=== PATIENT | male | born 1960 ===

== ENCOUNTER 2017-08-01 10:10 | Emergency (ER) | payer OTHER ==
[~2017-08-01] VITALS: Ht 152.4 cm; Wt 54.4 kg
[~2017-08-01 10:10] MED LIST: ANAPROX DS550 MG PO; CIPRO250 MG PO; CIPRO500 MG PO; FLOMAX0.4 MG PO; MOTRIN800 MG PO; PYRIDIUM200 M1 PO; VICODIN 5/500 505 MG PO
[2017-08-01] MEDS ORDERED: IBUPROFEN600 MG PO ×2 (13:00→15:51)
== END 2017-08-01 16:05 | disposition home or self-care (01) ==
LOC: ED 10:10
DX: S80.12XA Contusion of left lower leg, initial encounter (principal); Z79.899 Other long term (current) drug therapy; V80.010A Animal-rider injured by fall from or being thrown from horse in noncollision accident, initial encounter; Y93.52 Activity, horseback riding; Y92.89 Other specified places as the place of occurrence of the external cause; Y99.9 Unspecified external cause status

== ENCOUNTER 2020-01-02 10:43 | Emergency (ER) | payer OTHER ==
[~2020-01-02 10:43] MED LIST changes: +IBUPROFEN600 MG PO
== END 2020-01-02 12:45 | disposition home or self-care (01) ==
LOC: ED 10:43
DX: S22.9XXA Fracture of bony thorax, part unspecified, initial encounter for closed fracture (principal); X58.XXXA Exposure to other specified factors, initial encounter; Y93.89 Activity, other specified; Y92.89 Other specified places as the place of occurrence of the external cause; Y99.8 Other external cause status

== ENCOUNTER 2020-07-11 01:08 | Emergency (ER) | payer SELFPAY ==
[~2020-07-11] VITALS: Ht 157.4 cm; Wt 54.4 kg
[2020-07-11 02:10] LABS: BILIRUBIN Negative (Negative); BLOOD 3+ (Negative); CLARITY Clear (Clear); COLOR Yellow (Yellow); GLUCOSE Negative (Negative); KETONE Negative (Negative); LEUKO ESTERASE Negative (Negative); NITRITE Negative (Negative); PH 5.5 (4.5-8.0); SPECIFIC GRAVITY <= 1.005 (1.001-1.030); UROBILINOGEN 0.2 E.U./dl (0.0-1.0)
[2020-07-11 02:21] LABS: RBC 31-40 rbc/hpf (0-2)
[2020-07-11] MEDS ORDERED: FLOMAX0.4 MG PO ×2 (11:03)
[2020-07-11] MEDS ORDERED: XYLOCAINE 5%35.44 GM T (14:27)
== END 2020-07-11 02:39 | disposition home or self-care (01) ==
LOC: ED 01:08
PROVIDERS: Internal Medicine
DX: R33.9 Retention of urine, unspecified (principal); R39.11 Hesitancy of micturition; R10.30 Lower abdominal pain, unspecified

== ENCOUNTER 2020-07-11 10:05 | Emergency (ER) | payer SELFPAY ==
[~2020-07-11] VITALS: Wt 54.4 kg
[2020-07-11] MEDS ORDERED: FLOMAX0.4 MG PO ×2 (11:03)
[2020-07-11] MEDS ORDERED: XYLOCAINE 5%35.44 GM T (14:27)
== END 2020-07-11 11:01 | disposition home or self-care (01) ==
LOC: ED 10:05
DX: T83.038A Leakage of other urinary catheter, initial encounter (principal); N40.0 Benign prostatic hyperplasia without lower urinary tract symptoms; K62.89 Other specified diseases of anus and rectum; Y84.8 Other medical procedures as the cause of abnormal reaction of the patient, or of later complication, without mention of misadventure at the time of the procedure; Y92.89 Other specified places as the place of occurrence of the external cause

== ENCOUNTER 2020-07-11 13:52 | Emergency (ER) | payer SELFPAY ==
[2020-07-11] MEDS ORDERED: XYLOCAINE 5%35.44 GM T (14:27)
== END 2020-07-11 14:38 | disposition home or self-care (01) ==
LOC: ED 13:52
DX: N40.0 Benign prostatic hyperplasia without lower urinary tract symptoms (principal); Z79.899 Other long term (current) drug therapy; Z96.0 Presence of urogenital implants

== ENCOUNTER 2020-11-05 09:00 | Emergency (ER) | payer SELFPAY ==
[~2020-11-05] VITALS: Ht 157.4 cm; Wt 54.4 kg
[~2020-11-05 09:00] MED LIST changes: +XYLOCAINE 5%35.44 GM T
== END 2020-11-05 10:55 | disposition home or self-care (01) ==
LOC: ED 09:00
DX: N40.0 Benign prostatic hyperplasia without lower urinary tract symptoms (principal)

== ENCOUNTER 2020-11-11 16:17 | Emergency (ER) | payer SELFPAY ==
[~2020-11-11] VITALS: Ht 157.4 cm; Wt 54.4 kg
[2020-11-11 19:03] LABS: BASO # 0.1 10*3/uL (0.0-0.1); BASO % 0.6 % (0.0-1.0); EOS # 0.1 10*3/uL (0.0-0.4); EOS % 0.6 % (1.0-4.0); HEMATOCRIT 43.9 % (42.0-52.0); LYMPH # 1.1 10*3/uL (1.3-4.4); LYMPH % 9.5 % (27.0-41.0); MEAN CELL VOLUME 97.6 fl (80.0-94.0); MEAN CORPUSCULAR HGB 34.7 pg (27.0-31.0); MEAN CORPUSCULAR HGB CONC 35.5 g/dl (33.0-37.0); MEAN PLATELET VOLUME 9.4 fl (9.6-12.3); MONO # 0.9 10*3/uL (0.1-1.0); MONO % 8.1 % (3.0-9.0); NEUT # 9.4 10*3/uL (2.3-7.9); NEUT % 80.9 % (47.0-73.0); PLATELET COUNT AUTOMATED 295 10*3/uL (130-400); RED CELL DISTRI WIDTH 12.1 % (0-14.5); WHITE BLOOD COUNT 11.6 10*3/uL (4.8-10.8)
[2020-11-11 19:21] LABS: ALBUMIN 3.7 gm/dl (3.1-4.5); ALKALINE PHOSPHATASE 34 U/L (45-117); BUN 14 mg/dl (7-24); CHLORIDE 105 mmol/L (98-107); POTASSIUM 3.9 mmol/L (3.5-5.1); SGOT/AST 37 IU/L (3-35); SGPT/ALT 78 U/L (12-78); SODIUM 134 mmol/L (136-145); TOTAL PROTEIN 7.9 gm/dL (6.4-8.2)
[2020-11-11 20:12] LABS: BILIRUBIN Negative (Negative); BLOOD 2+ (Negative); CLARITY Turbid (Clear); COLOR Yellow (Yellow); GLUCOSE Negative (Negative); KETONE 1+ (Negative); LEUKO ESTERASE 3+ (Negative); NITRITE Positive (Negative); SPECIFIC GRAVITY 1.015 (1.001-1.030)
[2020-11-11 20:20] LABS: BACTERIA 4+; WBC TNTC wbc/hpf (0-5)
[2020-11-11] MEDS ORDERED: SEPTDS PO ×2 (20:34)
[2020-11-12] MEDS ORDERED: CIPRO500 MG PO (19:45)
== END 2020-11-11 21:35 | disposition home or self-care (01) ==
LOC: ED 16:17
PROVIDERS: Physician Assistant
DX: N39.0 Urinary tract infection, site not specified (principal)

== ENCOUNTER 2020-11-12 15:43 | Emergency (ER) | payer SELFPAY ==
[~2020-11-12] VITALS: Ht 157.4 cm; Wt 54.4 kg
[~2020-11-12 15:43] MED LIST changes: +SEPTDS PO
[2020-11-12 18:05] LABS: BILIRUBIN Negative (Negative); BLOOD 3+ (Negative); CLARITY Clear (Clear); COLOR Yellow (Yellow); GLUCOSE Negative (Negative); KETONE Negative (Negative); LEUKO ESTERASE 3+ (Negative); NITRITE Negative (Negative); UROBILINOGEN 0.2 E.U./dl (0.0-1.0)
[2020-11-12 18:13] LABS: BACTERIA 1+; RBC TNTC rbc/hpf (0-2); WBC TNTC wbc/hpf (0-5)
[2020-11-12 18:20] LABS: BASO # 0.1 10*3/uL (0.0-0.1); BASO % 0.8 % (0.0-1.0); EOS % 0.4 % (1.0-4.0); HEMATOCRIT 42.2 % (42.0-52.0); LYMPH % 12.3 % (27.0-41.0); MEAN CELL VOLUME 97.2 fl (80.0-94.0); MEAN CORPUSCULAR HGB 34.3 pg (27.0-31.0); MEAN CORPUSCULAR HGB CONC 35.3 g/dl (33.0-37.0); MEAN PLATELET VOLUME 9.4 fl (9.6-12.3); MONO # 1.2 10*3/uL (0.1-1.0); MONO % 14.6 % (3.0-9.0); NEUT % 71.5 % (47.0-73.0); PLATELET COUNT AUTOMATED 263 10*3/uL (130-400); RED BLOOD COUNT 4.34 10*6/uL (4.50-5.90); WHITE BLOOD COUNT 8.4 10*3/uL (4.8-10.8)
[2020-11-12 18:36] LABS: ALBUMIN 3.3 gm/dl (3.1-4.5); ALKALINE PHOSPHATASE 25 U/L (45-117); BUN 11 mg/dl (7-24); CHLORIDE 104 mmol/L (98-107); CREATININE 1.04 mg/dL (0.70-1.30); POTASSIUM 3.6 mmol/L (3.5-5.1); SGOT/AST 34 IU/L (3-35); SGPT/ALT 69 U/L (12-78); SODIUM 132 mmol/L (136-145); TOTAL PROTEIN 7.6 gm/dL (6.4-8.2)
[2020-11-12] MEDS ORDERED: CIPRO500 MG PO (19:45)
== END 2020-11-12 20:05 | disposition home or self-care (01) ==
LOC: ED 15:43
PROVIDERS: Family Medicine
DX: N39.0 Urinary tract infection, site not specified (principal); R33.9 Retention of urine, unspecified

== ENCOUNTER 2020-11-28 13:16 | Emergency (ER) | payer SELFPAY ==
[~2020-11-28] VITALS: Wt 49.9 kg
[2020-11-28 14:49] LABS: BASO % 0.6 % (0.0-1.0); EOS # 0.2 10*3/uL (0.0-0.4); EOS % 2.6 % (1.0-4.0); HEMATOCRIT 44.6 % (42.0-52.0); LYMPH # 2.3 10*3/uL (1.3-4.4); LYMPH % 33.5 % (27.0-41.0); MEAN CELL VOLUME 94.1 fl (80.0-94.0); MEAN CORPUSCULAR HGB 33.8 pg (27.0-31.0); MEAN CORPUSCULAR HGB CONC 35.9 g/dl (33.0-37.0); MEAN PLATELET VOLUME 9.9 fl (9.6-12.3); MONO # 0.8 10*3/uL (0.1-1.0); MONO % 12.2 % (3.0-9.0); NEUT # 3.5 10*3/uL (2.3-7.9); NEUT % 50.8 % (47.0-73.0); PLATELET COUNT AUTOMATED 365 10*3/uL (130-400); RED BLOOD COUNT 4.74 10*6/uL (4.50-5.90); RED CELL DISTRI WIDTH 11.9 % (0-14.5); WHITE BLOOD COUNT 6.9 10*3/uL (4.8-10.8)
[2020-11-28 15:03] LABS: ALBUMIN 2.6 gm/dl (3.1-4.5); ALKALINE PHOSPHATASE 25 U/L (45-117); BUN 19 mg/dl (7-24); CHLORIDE 108 mmol/L (98-107); CREATININE 0.96 mg/dL (0.70-1.30); POTASSIUM 3.2 mmol/L (3.5-5.1); SGOT/AST 38 IU/L (3-35); SGPT/ALT 62 U/L (12-78); SODIUM 139 mmol/L (136-145); TOTAL PROTEIN 7.4 gm/dL (6.4-8.2)
== END 2020-11-28 15:36 | disposition home or self-care (01) ==
LOC: ED 13:16
PROVIDERS: Emergency Medicine
DX: U07.1 COVID-19 (principal); R33.9 Retention of urine, unspecified; R07.9 Chest pain, unspecified; E87.6 Hypokalemia

== ENCOUNTER 2020-12-02 18:30 | Emergency (ER) | payer SELFPAY ==
[2020-12-03] MEDS ORDERED: CIPRO500 MG PO (05:13)
== END 2020-12-02 21:49 | disposition left against medical advice (07) ==
LOC: ED 18:30
DX: U07.1 COVID-19 (principal); R33.9 Retention of urine, unspecified; Z53.21 Procedure and treatment not carried out due to patient leaving prior to being seen by health care provider

== ENCOUNTER 2020-12-03 03:40 | Emergency (ER) | payer SELFPAY ==
[~2020-12-03] VITALS: Ht 149.9 cm; Wt 54.4 kg
[2020-12-03 04:42] LABS: BILIRUBIN Negative (Negative); BLOOD 1+ (Negative); CLARITY Clear (Clear); COLOR Yellow (Yellow); GLUCOSE Negative (Negative); KETONE Negative (Negative); LEUKO ESTERASE 3+ (Negative); NITRITE Negative (Negative); SPECIFIC GRAVITY <= 1.005 (1.001-1.030); UROBILINOGEN 0.2 E.U./dl (0.0-1.0)
[2020-12-03 05:09] LABS: BACTERIA 1+; WBC 31-40 wbc/hpf (0-5)
[2020-12-03] MEDS ORDERED: CIPRO500 MG PO (05:13)
== END 2020-12-03 05:50 | disposition home or self-care (01) ==
LOC: ED 03:40
PROVIDERS: Internal Medicine
DX: R33.9 Retention of urine, unspecified (principal); N40.0 Benign prostatic hyperplasia without lower urinary tract symptoms

== ENCOUNTER 2020-12-07 18:40 | Emergency (ER) | payer SELFPAY | END 2020-12-07 19:55 | disposition home or self-care (01) | LOC: ED 18:40 | DX: Z46.6 Encounter for fitting and adjustment of urinary device (principal) ==

== ENCOUNTER 2023-03-22 18:39 | Emergency (ER) | payer SELFPAY ==
[~2023-03-22] VITALS: Ht 157.4 cm; Wt 54.4 kg
[2023-03-22 19:33] LABS: BILIRUBIN Negative (Negative); BLOOD Negative (Negative); CLARITY Clear (Clear); COLOR Yellow (Yellow); GLUCOSE 3+ (Negative); KETONE Negative (Negative); LEUKO ESTERASE Negative (Negative); NITRITE Negative (Negative); SPECIFIC GRAVITY >= 1.030 (1.001-1.030); UROBILINOGEN 0.2 E.U./dl (0.0-1.0)
[2023-03-22 20:05] LABS: MUCOUS 1+; RBC 0-2 rbc/hpf (0-2)
== END 2023-03-22 21:54 | disposition home or self-care (01) ==
LOC: ED 18:39
PROVIDERS: Emergency Medicine
DX: N40.1 Benign prostatic hyperplasia with lower urinary tract symptoms (principal); R33.8 Other retention of urine; E87.6 Hypokalemia; E87.1 Hypo-osmolality and hyponatremia

== ENCOUNTER 2023-03-24 10:13 | Emergency (ER) | payer SELFPAY ==
[~2023-03-24] VITALS: Ht 127 cm; Wt 52.2 kg
== END 2023-03-24 12:04 | disposition home or self-care (01) ==
LOC: ED 10:13
DX: R33.9 Retention of urine, unspecified (principal)